=== PATIENT | female | born 1960 | race Caucasian/White ===

== ENCOUNTER → 2017-09-08 | Outpatient (REF) | payer OTHER ==
[~2017-09-08] MED LIST: NO HOME MEDS
== END ==
LOC: M LAB REF 09:44
PROVIDERS: ATTEND Physician Assistant Surgical
DX: J02.9 Acute pharyngitis, unspecified (principal)

== ENCOUNTER → 2018-08-13 | Outpatient (REF) | payer OTHER | LOC: M LAB REF 16:51 | DX: D24.2 Benign neoplasm of left breast (principal); N61.1 Abscess of the breast and nipple | CPT/HCPCS: 88305 ==

== ENCOUNTER → 2022-01-07 | Outpatient (REF) | payer OTHER | LOC: M LAB REF 17:29 | PROVIDERS: ATTEND Physician Assistant Medical | DX: J02.0 Streptococcal pharyngitis (principal); R50.9 Fever, unspecified ==

== ENCOUNTER → 2022-04-04 | Outpatient (REF) | payer OTHER | LOC: M LAB REF 12:14 | PROVIDERS: ATTEND Physician Assistant | DX: J02.9 Acute pharyngitis, unspecified (principal); R50.9 Fever, unspecified ==

== ENCOUNTER 2022-09-25 17:16 | Emergency (ER) | payer OTHER ==
[~2022-09-25] VITALS: Ht 160 cm; Wt 52.0 kg
[2022-09-25 19:45] LABS: BASO % 0.6 % (0.0-1.0); EOS % 0.1 % (0.0-3.0); HEMATOCRIT 44.5 % (36.0-47.0); HEMOGLOBIN 14.4 g/dl (12.0-15.5); LYMPH % 27.6 % (24.0-44.0); MEAN CORPUSCULAR HEMOGLOBIN 29.1 pg (27.0-33.0); MEAN CORPUSCULAR HGB CONC 32.4 g/dl (32.0-36.5); MEAN CORPUSCULAR VOLUME 90.1 fl (80.0-96.0); MONO # 0.5 10^3/uL (0.0-0.8); MONO % 6.8 % (2.0-8.0); NEUTROPHILS # 4.7 10^3/uL (1.5-8.5); NEUTROPHILS % 64.3 % (36.0-66.0); PLATELET COUNT, AUTOMATED 204 10^3/uL (150-450); RED BLOOD COUNT 4.94 10^6/uL (4.00-5.40); WHITE BLOOD COUNT 7.2 10^3/uL (4.0-10.0)
[2022-09-25 19:50] LABS: CHLORIDE LEVEL 104 MMOL/L (98-107); SODIUM LEVEL 140 MMOL/L (136-145)
[2022-09-25 19:51] LABS: CARBON DIOXIDE LEVEL 26 MMOL/L (20-31)
[2022-09-25 19:57] LABS: BLOOD UREA NITROGEN 13 MG/DL (9-23); CALCIUM LEVEL 9.7 MG/DL (8.3-10.6); GLUCOSE, FASTING 99 MG/DL (74-106)
[2022-09-25 19:59] LABS: CREATININE FOR GFR 0.58 MG/DL (0.55-1.30); GLOMERULAR FILTRATION RATE > 60.0 (>45)
[2022-09-25] MEDS ORDERED: ONDANSETRON 4MG 2ML VIAL IV ONE (21:05)
[2022-09-25] MEDS ORDERED: NS 1,000 ML IV ONE (21:05)
[2022-09-25] MEDS ORDERED: KETOROLAC 30 MG/ML 1ML VIAL IV ONE (21:05)
[2022-09-25] MEDS ORDERED: MORPHINE 2 MG/ML 1ML VIAL IV ONE (22:05)
[2022-09-25] MEDS ORDERED: NITROFURANTOIN (MACROBID) 100 MG CAP PO ONE (22:40)
[2022-09-25] MEDS ORDERED: ONDANSETRON 4MG ORAL DISINTEGRATING TAB PO ONE (22:40)
[2022-09-25] MEDS ORDERED: OXYCODONE/APAP 5MG/325MG(HOME DOSE PACK) PO ONE (22:40)
[2022-09-25] MEDS ORDERED: MACR100C43 PO (22:41)
[2022-09-25] MEDS ORDERED: PERC5TAB12 PO (22:41)
[2022-09-25] MEDS ORDERED: ONDA4TAB6 PO (22:41)
[2022-09-25 23:38] VITALS: BP 164/72
== END 2022-09-25 23:54 | disposition home or self-care (01) ==
LOC: M ED 17:16
DX: N39.0 Urinary tract infection, site not specified (principal); I10 Essential (primary) hypertension; Z87.442 Personal history of urinary calculi; Z88.1 Allergy status to other antibiotic agents; Z88.2 Allergy status to sulfonamides; Z88.6 Allergy status to analgesic agent; Z91.013 Allergy to seafood; Z91.041 Radiographic dye allergy status; Z91.030 Bee allergy status; Z79.899 Other long term (current) drug therapy
CPT/HCPCS: 74176; 80048; 81000; 81015; 85025; 87086; 96361; 96374; 96375; 99285; J1885; J2270; J2405

== ENCOUNTER → 2024-08-19 | Outpatient (REF) | payer OTHER ==
[~2024-08-19] MED LIST changes: +MACR100C43 PO; +ONDA-282 PO; +PERC5TAB12 PO
== END ==
LOC: M LAB REF 16:26
PROVIDERS: ATTEND Physician Assistant
DX: B34.9 Viral infection, unspecified (principal)

== ENCOUNTER → 2024-09-03 | Outpatient (REF) | payer OTHER | LOC: M LAB REF 21:13 | PROVIDERS: ATTEND Physician Assistant | DX: B34.9 Viral infection, unspecified (principal) ==